=== PATIENT | male | born 1940 | race Hispanic/Latino ===

== ENCOUNTER 2024-05-28 00:45 | Inpatient (IN) | payer MEDICARE, BC ==
[~2024-05-28] VITALS: Ht 172.7 cm; Wt 89.8 kg
[~2024-05-28 00:45] MED LIST: AMLODIPINE BESY10 MG PO; ELIQUIS2.5 MG PO; FLOMAX0.4 MG PO; HUMULIN R100 UNIT/2 SQ; LOPRESSOR25 MG PO; LOSARTAN-HCTZ1 EAC2; PROTONIX40 MG/ML PO
[2024-05-28 01:29] LABS: BASOPHILS % 0.1 % (0.0-1.0); EOSINOPHILS % 0.2 % (0.0-6.0); HEMATOCRIT 38.5 % (38.2-49.6); HEMOGLOBIN 12.6 g/dL (14.0-18.0); LYMPHOCYTES # (AUTO) 0.5 (1.0-3.2); LYMPHOCYTES % 4.6 % (18.0-39.1); MEAN CORPUSCULAR HEMOGLOBIN 29.2 pg (28-32); MEAN CORPUSCULAR HGB CONC 32.7 g/dL (31-35); MEAN CORPUSCULAR VOLUME 89.1 fL (81-99); MONOCYTES # (AUTO) 0.8 (0.2-0.8); NEUTROPHILS % 86.6 % (38.7-80.0); PLATELET COUNT 170 x10e3/uL (140-360); RED BLOOD COUNT 4.32 x10e6/uL (4.3-5.7); RED CELL DISTRIBUTION WIDTH 13.7 % (11.7-14.4); WHITE BLOOD COUNT 10.38 x10e3/uL (4.8-10.8)
[2024-05-28] MEDS: ACETAMINOPHEN 325 MG TAB PO STA (01:33)
[2024-05-28] MEDS: SODIUM CHLORIDE 0.9% 1000ML 1,000 ML IV STA ×2 (01:34)
[2024-05-28 01:45] LABS: ALBUMIN 3.3 g/dL (3.5-5.0); ALBUMIN/GLOBULIN RATIO 0.9 (0.8-2.0); ANION GAP 12.3 mmol/L (8-16); BILIRUBIN,TOTAL 1.8 mg/dL (0.2-1.2); CALCIUM 9.1 mg/dL (8.4-10.2); CREATININE, SERUM 1.41 mg/dL (0.72-1.25); POTASSIUM 3.3 mmol/L (3.5-5.1); TOTAL PROTEIN 7.1 g/dL (6.5-8.1)
[2024-05-28] MEDS ORDERED: IOPAMIDOL 370 MG/ML 100 ML INFUS..BTL INJ ONE (02:02)
[2024-05-28 02:15] VITALS: PULSE 78; RESP 18; O2SAT 97
[2024-05-28 02:23] LABS: TROPONIN I 0.006 ng/mL (0-0.300)
[2024-05-28 02:43] LABS: INFLUENZAE A&B ANTIGEN (RAPID) NEGATIVE (NEGATIVE)
[2024-05-28 02:44] LABS: RESPIRATORY SYNC. VIRUS POSITIVE (NEGATIVE)
[2024-05-28] MEDS ORDERED: Morphine 4mg INJECTION 4 MG/ML INJ IV PRN (03:15)
[2024-05-28] MEDS: SODIUM CHLORIDE 0.9% 1000ML 1,000 ML IV SCH (05:31)
[2024-05-28 13:37] VITALS: PULSE 74; RESP 16; TEMP 98.1
[2024-05-28 15:21] VITALS: BP 175/76; PULSE 67; RESP 18; TEMP 98.5; O2SAT 97
[2024-05-28 15:36] VITALS: BP 134/87; PULSE 78; RESP 18; TEMP 98.5; O2SAT 99
[2024-05-28 20:00] VITALS: BP 154/62; PULSE 65; RESP 18; TEMP 98.5; O2SAT 98
[2024-05-29] VITALS (8 sets, daily range): BP systolic 132–181; BP diastolic 65–91; PULSE 59–66; RESP 17–18; TEMP 97.9–99.3; O2SAT 97–100
[2024-05-29 06:11] LABS: BASOPHILS % 0.1 % (0.0-1.0); EOSINOPHILS # (AUTO) 0.2 (0.0-0.4); EOSINOPHILS % 2.1 % (0.0-6.0); HEMATOCRIT 35.3 % (38.2-49.6); HEMOGLOBIN 10.8 g/dL (14.0-18.0); LYMPHOCYTES # (AUTO) 0.8 (1.0-3.2); LYMPHOCYTES % 11.6 % (18.0-39.1); MEAN CORPUSCULAR HEMOGLOBIN 28.1 pg (28-32); MEAN CORPUSCULAR HGB CONC 30.6 g/dL (31-35); MEAN CORPUSCULAR VOLUME 91.9 fL (81-99); MONOCYTES # (AUTO) 0.9 (0.2-0.8); MONOCYTES % 12.3 % (4.4-11.3); NEUTROPHILS # (AUTO) 5.3 (2.1-6.9); NEUTROPHILS % 73.3 % (38.7-80.0); PLATELET COUNT 147 x10e3/uL (140-360); RED BLOOD COUNT 3.84 x10e6/uL (4.3-5.7); RED CELL DISTRIBUTION WIDTH 13.9 % (11.7-14.4); WHITE BLOOD COUNT 7.18 x10e3/uL (4.8-10.8)
[2024-05-29 06:41] LABS: ALBUMIN 2.6 g/dL (3.5-5.0); ALBUMIN/GLOBULIN RATIO 0.7 (0.8-2.0); BILIRUBIN,TOTAL 0.7 mg/dL (0.2-1.2); CALCIUM 8.6 mg/dL (8.4-10.2); CREATININE, SERUM 1.21 mg/dL (0.72-1.25); TOTAL PROTEIN 6.1 g/dL (6.5-8.1)
[2024-05-29] MEDS ORDERED: VESICARE5 MG PO (10:36)
[2024-05-29] MEDS ORDERED: METOPROLOL SUCC25 MG PO (10:36)
[2024-05-29] MEDS: POTASSIUM CHLORIDE 10MEQ EA PO ONE (15:49)
[2024-05-29] MEDS: HYDRALAZINE HCL 20 MG/ML VIAL IV PRN (15:51)
[2024-05-29] MEDS: METOPROLOL SUCCINATE 25 MG TAB XL PO SCH (17:24)
[2024-05-30 06:35] LABS: BASOPHILS % 0.1 % (0.0-1.0); EOSINOPHILS % 0.4 % (0.0-6.0); HEMATOCRIT 37.8 % (38.2-49.6); HEMOGLOBIN 12.1 g/dL (14.0-18.0); LYMPHOCYTES # (AUTO) 0.6 (1.0-3.2); LYMPHOCYTES % 7.8 % (18.0-39.1); MEAN CORPUSCULAR HEMOGLOBIN 28.7 pg (28-32); MEAN CORPUSCULAR VOLUME 89.8 fL (81-99); MONOCYTES # (AUTO) 0.6 (0.2-0.8); MONOCYTES % 7.2 % (4.4-11.3); NEUTROPHILS # (AUTO) 6.6 (2.1-6.9); PLATELET COUNT 168 x10e3/uL (140-360); RED BLOOD COUNT 4.21 x10e6/uL (4.3-5.7); RED CELL DISTRIBUTION WIDTH 14.3 % (11.7-14.4); WHITE BLOOD COUNT 7.91 x10e3/uL (4.8-10.8)
[2024-05-30 06:56] LABS: ANION GAP 12.1 mmol/L (8-16); CALCIUM 8.8 mg/dL (8.4-10.2); CREATININE, SERUM 1.13 mg/dL (0.72-1.25); POTASSIUM 3.1 mmol/L (3.5-5.1)
[2024-05-30 07:29] VITALS: BP 177/96; PULSE 65; RESP 16; TEMP 97.6; O2SAT 65
[2024-05-30 08:00] VITALS: BP 177/96; PULSE 65; RESP 16; TEMP 97.6; O2SAT 100
[2024-05-30 12:30] VITALS: BP 175/86; PULSE 65; RESP 16; TEMP 98.2; O2SAT 100
[2024-05-30 16:00] VITALS: BP 188/90; PULSE 62; RESP 18; TEMP 98.4; O2SAT 100
[2024-05-30] MEDS: LABETALOL HCL 5 MG/ML 20ML VIAL IV PRN (16:52)
[2024-05-30 20:00] VITALS: BP 157/76; PULSE 61; RESP 18; TEMP 98.3
[2024-05-31] VITALS (7 sets, daily range): BP systolic 136–196; BP diastolic 69–101; PULSE 60–72; RESP 16–19; TEMP 97.6–98.1; O2SAT 97–100
[2024-05-31 06:12] LABS: BASOPHILS % 0.3 % (0.0-1.0); EOSINOPHILS # (AUTO) 0.2 (0.0-0.4); EOSINOPHILS % 3.2 % (0.0-6.0); HEMATOCRIT 38.3 % (38.2-49.6); HEMOGLOBIN 12.2 g/dL (14.0-18.0); LYMPHOCYTES # (AUTO) 1.2 (1.0-3.2); MEAN CORPUSCULAR HEMOGLOBIN 28.6 pg (28-32); MEAN CORPUSCULAR HGB CONC 31.9 g/dL (31-35); MEAN CORPUSCULAR VOLUME 89.7 fL (81-99); MONOCYTES # (AUTO) 0.7 (0.2-0.8); MONOCYTES % 9.9 % (4.4-11.3); NEUTROPHILS # (AUTO) 5.1 (2.1-6.9); NEUTROPHILS % 70.2 % (38.7-80.0); PLATELET COUNT 193 x10e3/uL (140-360); RED BLOOD COUNT 4.27 x10e6/uL (4.3-5.7); RED CELL DISTRIBUTION WIDTH 14.2 % (11.7-14.4); WHITE BLOOD COUNT 7.26 x10e3/uL (4.8-10.8)
[2024-05-31 06:35] LABS: ALBUMIN 2.8 g/dL (3.5-5.0); ALBUMIN/GLOBULIN RATIO 0.7 (0.8-2.0); BILIRUBIN,TOTAL 0.6 mg/dL (0.2-1.2); CREATININE, SERUM 1.24 mg/dL (0.72-1.25); TOTAL PROTEIN 6.7 g/dL (6.5-8.1)
[2024-05-31] MEDS ORDERED: ACETAMIN/BUTALBITAL/CAFFEINE TAB PO PRN (08:15)
[2024-05-31] MEDS: ONDANSETRON HCL INJ 2MG/ML 2ML 2 MG/ML VIAL IV PRN (09:10)
[2024-05-31] MEDS: ACETAMINOPHEN 325 MG TAB PO PRN (09:18)
[2024-05-31] MEDS ORDERED: POTASSIUM CHLORIDE 10MEQ EA PO SCH ×2 (12:00→20:00)
[2024-05-31] MEDS ORDERED: FENTANYL CITRATE/PF 100MCG/2 ML INJ ONE (12:52)
[2024-05-31] MEDS ORDERED: INDOMETHACIN 50 MG SUPP.RECT RC ONE (14:56)
[2024-05-31] MEDS ORDERED: IOPAMIDOL 610MG/1ML 300 MG/ML VIAL IV ONE (15:10)
[2024-05-31] MEDS ORDERED: SUCCINYLCHOLINE CHLORIDE 20 MG/ML 10ML VIAL ONE (17:03)
[2024-05-31] MEDS ORDERED: PHENYLEPHRINE HCL 1% 10 MG/ML VIAL ONE (17:03)
[2024-05-31] MEDS ORDERED: PROPOFOL IV EMULSION 10 MG/ML 20 ML VIAL ONE (17:03)
[2024-05-31] MEDS ORDERED: DEXAMETHASONE SOD PHOS INJ 4 MG/ML SDV ONE (17:03)
[2024-05-31] MEDS ORDERED: LIDOCAINE HCL 2% LOCAL INJ 5 ML SDV VIAL INJ ONE (17:03)
[2024-05-31] MEDS ORDERED: ONDANSETRON HCL INJ 2MG/ML 2ML 2 MG/ML VIAL ONE (17:03)
[2024-05-31] MEDS ORDERED: EPHEDRINE SULFATE INJ 50 MG/ML VIAL ONE (17:03)
[2024-06-01 03:17] VITALS: BP 131/95; PULSE 63; RESP 18; TEMP 98.2; O2SAT 100
[2024-06-01 06:47] LABS: ALBUMIN 2.9 g/dL (3.5-5.0); ALBUMIN/GLOBULIN RATIO 0.8 (0.8-2.0); ANION GAP 15.6 mmol/L (8-16); BILIRUBIN,TOTAL 0.4 mg/dL (0.2-1.2); CALCIUM 8.9 mg/dL (8.4-10.2); CREATININE, SERUM 1.76 mg/dL (0.72-1.25); POTASSIUM 3.6 mmol/L (3.5-5.1); TOTAL PROTEIN 6.6 g/dL (6.5-8.1)
[2024-06-01 07:28] VITALS: BP 140/73; PULSE 66; RESP 18; TEMP 97.8; O2SAT 100
[2024-06-01 11:13] VITALS: BP 141/80; PULSE 69; RESP 19; TEMP 98.9; O2SAT 100
[2024-06-01 15:58] VITALS: BP 175/88; PULSE 66; RESP 17; TEMP 97.1; O2SAT 100
[2024-06-01 20:00] VITALS: BP 161/83; PULSE 63; RESP 18; TEMP 98.2; O2SAT 99
[2024-06-01] MEDS ORDERED: SENNOSIDES 8.6 MG TAB PO PRN (20:15)
[2024-06-01] MEDS: POLYETHYLENE GLYCOL 3350 17 GM PACK PO SCH (20:15)
[2024-06-01 21:30] VITALS: BP 161/83; PULSE 63; RESP 18; TEMP 98.2; O2SAT 99
[2024-06-01] MEDS: DOCUSATE SODIUM LIQD 100 MG/10 ML UDC NG SCH (21:30)
[2024-06-01] MEDS: BISACODYL 5 MG TAB EC PO ONE (21:32)
[2024-06-02] VITALS (7 sets, daily range): BP systolic 142–188; BP diastolic 77–90; PULSE 58–70; RESP 17–20; TEMP 97.4–98.5; O2SAT 97–100
[2024-06-02 05:47] LABS: BASOPHILS % 0.3 % (0.0-1.0); EOSINOPHILS # (AUTO) 0.2 (0.0-0.4); EOSINOPHILS % 3.1 % (0.0-6.0); HEMOGLOBIN 11.3 g/dL (14.0-18.0); LYMPHOCYTES # (AUTO) 1.8 (1.0-3.2); LYMPHOCYTES % 26.7 % (18.0-39.1); MEAN CORPUSCULAR HEMOGLOBIN 28.5 pg (28-32); MEAN CORPUSCULAR HGB CONC 31.4 g/dL (31-35); MEAN CORPUSCULAR VOLUME 90.7 fL (81-99); MONOCYTES # (AUTO) 0.6 (0.2-0.8); MONOCYTES % 8.8 % (4.4-11.3); NEUTROPHILS % 60.7 % (38.7-80.0); PLATELET COUNT 191 x10e3/uL (140-360); RED BLOOD COUNT 3.97 x10e6/uL (4.3-5.7); RED CELL DISTRIBUTION WIDTH 14.4 % (11.7-14.4); WHITE BLOOD COUNT 6.67 x10e3/uL (4.8-10.8)
[2024-06-02 06:11] LABS: ALBUMIN 2.6 g/dL (3.5-5.0); ALBUMIN/GLOBULIN RATIO 0.7 (0.8-2.0); ANION GAP 12.1 mmol/L (8-16); BILIRUBIN,TOTAL 0.4 mg/dL (0.2-1.2); CALCIUM 8.6 mg/dL (8.4-10.2); CREATININE, SERUM 1.82 mg/dL (0.72-1.25); MAGNESIUM 2.2 MG/DL (1.3-2.1); PHOSPHORUS 3.4 MG/DL (2.3-4.7); TOTAL PROTEIN 6.1 g/dL (6.5-8.1)
[2024-06-02 06:12] LABS: POTASSIUM 3.1 mmol/L (3.5-5.1)
[2024-06-02] MEDS: D5.45%NS/KCL 20MEQ 1,000 ML IV ONE (09:31)
[2024-06-02] MEDS: POTASSIUM CHLORIDE 10MEQ EA PO ONE (09:59)
[2024-06-02 16:29] LABS: ANION GAP 11.8 mmol/L (8-16); CALCIUM 8.6 mg/dL (8.4-10.2); CREATININE, SERUM 1.57 mg/dL (0.72-1.25); POTASSIUM 3.8 mmol/L (3.5-5.1)
[2024-06-02] MEDS ORDERED: MIRALAX17 GM PO (17:06)
[2024-06-02] MEDS ORDERED: ACETAMINOPHEN325 M1 PO (17:06)
[2024-06-02] MEDS ORDERED: COLACE100 M1 PO (17:06)
[2024-06-02] MEDS ORDERED: DULCOLAX5 MG PO (17:06)
== END 2024-06-02 18:10 | disposition home health service (06) | DRG 445 ==
LOC: ER 00:50 → ERHOLD 03:08 → MED/SURG3 14:38
PROVIDERS: ADMIT Internal Medicine; ATTEND Internal Medicine
PROC: 0DJ08ZZ Inspection of Upper Intestinal Tract, Via Natural or Artificial Opening Endoscopic (ICD-10-PCS; principal; 2024-05-31 15:09)
DX: K80.42 Calculus of bile duct with acute cholecystitis without obstruction (principal); B40.0 Acute pulmonary blastomycosis; S32.020A Wedge compression fracture of second lumbar vertebra, initial encounter for closed fracture; K80.32 Calculus of bile duct with acute cholangitis without obstruction; N17.9 Acute kidney failure, unspecified; B97.4 Respiratory syncytial virus as the cause of diseases classified elsewhere; I12.9 Hypertensive chronic kidney disease with stage 1 through stage 4 chronic kidney disease, or unspecified chronic kidney disease; N18.30 Chronic kidney disease, stage 3 unspecified; E87.6 Hypokalemia; R53.81 Other malaise; I45.10 Unspecified right bundle-branch block; I48.0 Paroxysmal atrial fibrillation; Z91.81 History of falling; I25.10 Atherosclerotic heart disease of native coronary artery without angina pectoris; K40.90 Unilateral inguinal hernia, without obstruction or gangrene, not specified as recurrent; Z11.52 Encounter for screening for COVID-19; Z53.8 Procedure and treatment not carried out for other reasons; Z79.4 Long term (current) use of insulin; Z79.01 Long term (current) use of anticoagulants; Z95.1 Presence of aortocoronary bypass graft; Z82.49 Family history of ischemic heart disease and other diseases of the circulatory system; X58.XXXA Exposure to other specified factors, initial encounter
CPT/HCPCS: 36415; 43260; 70450; 71045; 72125; 74177; 74181; 74328; 80048; 80053; 82550; 82948; 83605; 83735; 84100; 84484; 85025; 87040; 87400; 87420; 93005; 94799; 99285; J0330; J0360; J1100; J2001; J2371; J2405; J2543; J7030; Q9967; U0002